=== PATIENT | female | born 1995 ===

== ENCOUNTER 2016-10-21 22:39 | Emergency (ER) | payer BC ==
[2016-10-21 23:02] VITALS: BP 122/63; PULSE 66; RESP 15; TEMP 98.1; O2SAT 99
--- NOTE | 2016-10-22 00:16 | ED PDOC ---
Lower Extremity Pain/Injury Time Seen by Provider: 10/21/16 23:14 Chief Complaint (Nursing): Lower Extremity Problem/Injury Chief Complaint (Provider): Right knee pain, 2 hours [employer] History Per: Patient History/Exam Limitations: no limitations Onset/Duration Of Symptoms: Days Current Symptoms Are (Timing): Still Present Additional Complaint(s): Pt states she was jumping on a [employer]amp[employer] and twisted her right knee. PT states she heard a crack. Pt states she is now having pain in the back of the knee. Non-radiating. 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 No knee injuries in the past. Past Medical History Vital Signs: Last Vital Signs Temp 98.1 F 10/21/16 23:00 Pulse 66 10/21/16 23:00 Resp 15 10/21/16 23:00 BP 122/63 10/21/16 23:00 Pulse Ox 99 10/21/16 23:00 - Medical History PMH: Denies: Chronic Kidney Disease - Family History Family History: States: Unknown Family Hx - Home Medications Home Medications: Ambulatory Orders Medication Instructions Recorded Amoxicillin/Clavulanate [Augmentin 1 tab PO BID #14 tab 09/11/16 875 MG-125 MG] Methylprednisolone [Medrol Dose 4 mg PO DAILY #21 mg 09/11/16 Pack (21 tabs)] - Allergies Allergies/Adverse Reactions: Allergies Allergy/AdvReac Type Severity Reaction Status Date / Time No Known Allergies Allergy Verified 10/21/16 23:02 Physical Exam - Reviewed Nursing Documentation Reviewed: Yes Vital Signs Reviewed: Yes - Physical Exam Appears: Positive for: Well, Non-toxic, No Acute Distress Head Exam: Positive for: ATRAUMATIC, NORMAL INSPECTION, NORMOCEPHALIC Skin: Positive for: Normal Color, Warm, DRY Eye Exam: Positive for: Normal appearance ENT: Positive for: Normal ENT Inspection Neck: Positive for: Normal, Painless ROM Respiratory: Negative for: Accessory Muscle Use, Respiratory Distress Pulses-Dorsalis Pedis (L): 2+ Pulses-Dorsalis Pedis (R): 2+ Pulses-Post. Tibialis (L): 2+ Pulses-Post. Tibialis (R): 2+ Back: Positive for: Normal Inspection Extremity: Positive for: Normal ROM, Tenderness (Posterior knee ) Neurologic/Psych: Positive for: Alert, Oriented - ECG O2 Sat by Pulse Oximetry: 99 Pulse Ox Interpretation: Normal Disposition - Clinical Impression Clinical Impression: Knee injury - Patient ED Disposition Is Patient to be Admitted: No Counseled Patient/Family Regarding: Diagnosis, Need For Followup - Disposition Referrals: Carlo Lenz MD [Staff Provider] - Disposition: Routine/Home Disposition Time: 01:48 Condition: GOOD Additional Instructions: Ice, elevation, motrin. Follow-up with orthopedics if pain persists. Instructions: Swollen Knee Joint (ED)
--- NOTE | 2016-10-22 12:06 | RAD ---
PROCEDURE: Right Knee Radiographs. HISTORY: COMPARISON: None available. FINDINGS: BONES: No acute displaced fracture. JOINTS: No dislocation. JOINT EFFUSION: Probable small suprapatellar joint effusion. OTHER FINDINGS: None. IMPRESSION: Probable small suprapatellar joint effusion. No acute displaced fracture or dislocation identified. If symptoms persist, or if there is continued clinical concern, x-ray follow-up in 7-10 days should be considered.
== END 2016-10-22 02:04 | disposition home or self-care (01) ==
LOC: H.ER 22:39
DX: S89.91XA Unspecified injury of right lower leg, initial encounter (principal); X50.9XXA Other and unspecified overexertion or strenuous movements or postures, initial encounter; Y92.89 Other specified places as the place of occurrence of the external cause